=== PATIENT | male | born 1960 | race Caucasian/White ===

== ENCOUNTER 2017-05-13 12:56 | Emergency (ER) | payer OTHER ==
[~2017-05-13] VITALS: Ht 182.9 cm; Wt 101.6 kg
--- NOTE | 2017-05-13 13:53 | ER.PDOC ---
General Chief Complaint: Cough/Congestion Stated Complaint: LOW O2 LEVELS AND WEAKNESS Time seen by MD: 13:51 Source: patient Exam Limitations: no limitations History of Present Illness Initial Comments Cough, congestion, bodyaches and sore throat for 6 days. Timing/Duration: gradual Associated Symptoms: runny nose, sore throat, cough Allergies: Coded Allergies: Sulfa (Sulfonamide Antibiotics) (Verified Allergy, Unknown, Hives, 05/13/17 ) Constitutional: no symptoms reported EENTM: see HPI Respiratory: see HPI Cardiovascular: no symptoms reported Gastrointestinal: no symptoms reported Genitourinary: no symptoms reported All Other Systems: Reviewed and Negative Past Medical History Medical History: no pertinent history Surgical History: appendectomy, knee, shoulder, other Social History Smoking: greater than 1 pack/day Alcohol Use: occassionally Drug Use: none Physical Exam General Appearance: alert, no distress Nose: rhinorrhea Throat: pharynx nml, airway nml Neck: nml inspection, supple Respiratory: no resp.distress, breath sounds nml Abdomen: non-tender, no organomegaly CVS: reg rate & rhythm, heart sounds nml Skin: color nml, no rash, warm/dry Extremities: non-tender, nml ROM, no pedal edema NEURO/PSYCH: oriented x 3, CN's nml as tested, motor nml, sensation nml, mood/ affect nml Results/Orders Results/Orders Laboratory Tests Test 05/13/17 13:55 Influenza Virus Type A Antibody NEGATIVE (NEG) Influenza Virus Type B Antibody NEGATIVE (NEG) Group A Streptococcus Screen POSITIVE (NEGATIVE) Departure Time of Disposition: 14:33 Disposition: 01 HOME, SELF-CARE Impression: Primary Impression: Strep pharyngitis Additional Impression: Acute URI Condition: Stable Referrals: PCP,UNKNOWN (PCP) PRIMARY CARE PROVIDER Additional Instructions: Amoxil Mucinex DM OTC as directed Ibuprofen F/U with PCP in 3-4 days Duration or Time Spent with Pa: 60 mins HOLLY IRVING MD May 13, 2017 13:53
[2017-05-13 14:21] LABS: STREP SCREEN POSITIVE (NEGATIVE)
[2017-05-13 14:22] VITALS: BP 144/76
[2017-05-13 14:55] VITALS: BP 144/76
== END 2017-05-13 14:46 | disposition home or self-care (01) ==
LOC: ER 12:56
DX: J02.0 Streptococcal pharyngitis (principal); F17.200 Nicotine dependence, unspecified, uncomplicated
CPT/HCPCS: 86710; 87880; 99284